=== PATIENT | female | born 1995 | race African-American/Black ===

== ENCOUNTER 2016-11-06 18:50 | Inpatient (IN) | payer MEDICAID, OTHER ==
[~2016-11-06] VITALS: Ht 30.5 cm; Wt 0.5 kg
[2016-11-06] MEDS ORDERED: LACT. RINGERS/OXYTOCIN 20UNITS 1,000 ML IV SCH (19:09)
[2016-11-06] MEDS ORDERED: METHYLERGONOVINE MALEATE 0.2 MG/ML AMP IM PRN (19:15)
[2016-11-06] MEDS ORDERED: WITCH HAZEL-GLYCERIN PAD TOP PRN (19:15)
[2016-11-06] MEDS ORDERED: NALBUPHINE HCL 10 MG/1ml INJECTION IV PRN (19:15)
[2016-11-06] MEDS ORDERED: DERMOPLAST 60ML BOTTLE TOP PRN (19:15)
[2016-11-06] MEDS ORDERED: LIDOCAINE 2%HCL (LOCAL ANESTH.) INJ 20ML MDV IJ ONE (19:15)
[2016-11-06] MEDS ORDERED: PHISODERM TOP SOLN 240ML BTL TOP PRN (19:15)
[2016-11-06 19:38] LABS: Basophils # (auto) 0 uL; Basophils % (auto) 0.3 % (0.0-2.0); CONDITION Y; Eosinophils # (auto) 0.1 uL; Eosinophils % (auto) 1.4 % (0.0-7.0); Hematocrit 37.1 % (36.0-46.0); Hemoglobin 12.4 g/dL (12.2-16.2); Lymphocytes # (auto) 1.8 uL; Lymphocytes % (auto) 22.4 % (10.0-50.0); Mean Corpuscular Hgb Conc. 33.3 g/dL (32.0-36.0); Mean Corpuscular Volume 86.9 fL (80.0-100.0); Mean Platelet Volume 11.1 fL (7.4-10.4); Monocytes # (auto) 0.5 uL; Monocytes % (auto) 5.7 % (0.0-12.0); Neutrophils # (auto) 5.6 uL; Neutrophils % (auto) 70.2 % (37.0-80.0); Platelet Count (auto) 217 10^3/uL (140-450); Red Cell Distribution Width 14.1 % (11.6-16.0); SUSPECT SEE PRINTOUT
[2016-11-06 19:43] LABS: Urine Bilirubin Negative (Negative); Urine Blood Negative /uL (Negative); Urine Color Yellow (Yellow); Urine Glucose Normal (Normal); Urine Ketone Negative (Negative); Urine Mucus FEW (None Seen); Urine Nitrite Negative (Negative); Urine RBC 4 /hpf (0 - 4); Urine Squamous Epithelial Cell MANY /hpf (<5); Urine Urobilinogen Normal (Negative)
[2016-11-06 19:55] LABS: INR 0.92 (0.9-1.15)
[2016-11-06 19:58] LABS: Albumin 2.7 g/dL (3.4-5.0); BUN/Creatinine Ratio 11.1; Bilirubin, Total 0.3 mg/dL (0.2-1.0); Potassium 3.6 mmol/L (3.5-5.1); Total Protein 7.2 g/dL (6.4-8.2)
[2016-11-07] VITALS (9 sets, daily range): BP systolic 120–142; BP diastolic 60–87
[2016-11-07] MEDS: LACTATED RINGER'S 1,000 ML IV SCH ×2 (00:17→03:19)
[2016-11-07] MEDS ORDERED: ePHEDrine SULFATE 50 MG/ML AMP ONE (07:44)
[2016-11-07] MEDS ORDERED: fentaNYL W ROPIVACAINE 150 ML EPI ONE (07:44)
[2016-11-07] MEDS ORDERED: LIDOCAINE HCL 2 %PF INJ 10ML AMP IJ ONE ×2 (07:44→08:00)
[2016-11-07] MEDS ORDERED: fentaNYL CITRATE 100 MCG/2 ML VL ONE ×2 (07:44→16:44)
[2016-11-07] MEDS ORDERED: fentaNYL CITRATE 100 MCG/2 ML VL IV ONE ×2 (08:00→08:45)
[2016-11-07] MEDS ORDERED: ePHEDrine SULFATE 50 MG/ML AMP IV ONE ×2 (08:00→08:45)
[2016-11-07] MEDS ORDERED: fentaNYL W ROPIVACAINE 150 ML EPI SCH ×2 (08:00→08:45)
[2016-11-07] MEDS ORDERED: SODIUM CHLORIDE 0.9% 500 ML IV PRN (08:41)
[2016-11-07] MEDS ORDERED: NALOXONE HCL 0.4 MG/ML VIAL IV ONE (08:45)
[2016-11-07] MEDS ORDERED: LACT. RINGERS/OXYTOCIN 20UNITS 1,000 ML IV SCH (09:15)
[2016-11-07] MEDS ORDERED: TERBUTALINE SULFATE 1 MG/ML 1ML VIAL SC ONE (09:15)
[2016-11-07] MEDS ORDERED: ceFAZolin 1GM/50ML D5W 50 ML IV ONE (12:58)
[2016-11-07] MEDS ORDERED: SUCCINYLCHOLINE CHLORIDE 20 MG/ML 10ML VIAL IV ONE (16:30)
[2016-11-07] MEDS ORDERED: PHENYLEPHRINE HCL 10 MG/ML VL IV ONE (16:32)
[2016-11-07] MEDS ORDERED: HYDROmorphone HCL 2 MG/ML VL ONE (16:43)
[2016-11-07] MEDS ORDERED: MIDAZOLAM HCL 1MG/1ML-2 ML VIAL ONE (16:44)
[2016-11-07] MEDS ORDERED: PROPOFOL 10 MG/ML 20 ML IV ONE (16:56)
[2016-11-07] MEDS ORDERED: ceFAZolin 1GM VL ONE (16:56)
[2016-11-07] MEDS ORDERED: OXYTOCIN 10 UNIT/ML 10ML VIAL ONE (16:56)
[2016-11-07] MEDS ORDERED: OXYTOCIN 10UNIT/ML 1ML VIAL ONE (17:17)
[2016-11-07] MEDS ORDERED: LACTATED RINGER'S 1,000 ML IV SCH (17:23)
[2016-11-07] MEDS ORDERED: KETOROLAC TROMETH 30 MG/ML 1ML VIAL IV ONE (17:30)
[2016-11-07] MEDS ORDERED: MIDAZOLAM HCL 1MG/1ML-2 ML VIAL IV PRN (17:30)
[2016-11-07] MEDS ORDERED: MORPHINE SULF INJ 2 MG/ML SYRINGE 1ML IV PRN (17:30)
[2016-11-07] MEDS ORDERED: ONDANSETRON HCL 4 MG/2 ML VIAL IV PRN (17:30)
[2016-11-07] MEDS ORDERED: LABETALOL HCL 5 MG/ML 4ML SYRINGE IV PRN (17:30)
[2016-11-07] MEDS ORDERED: ePHEDrine SULFATE 50 MG/ML AMP IV PRN (17:30)
[2016-11-07] MEDS ORDERED: ONDANSETRON HCL 4 MG/2 ML VIAL IV ONE (17:30)
[2016-11-07] MEDS: HYDROmorphone HCL 2 MG/ML VL IV PRN ×3 (17:55→23:09)
[2016-11-07] MEDS ORDERED: KETOROLAC TROMETH 30 MG/ML 1ML VIAL IV SCH (18:00)
[2016-11-07] MEDS: KETOROLAC TROMETH 30 MG/ML 1ML VIAL IV SCH (19:37)
[2016-11-07] MEDS: ceFAZolin 1GM/50ML D5W 50 ML IV SCH (22:01)
[2016-11-08] VITALS (12 sets, daily range): BP systolic 114–157; BP diastolic 65–80
[2016-11-08] MEDS: KETOROLAC TROMETH 30 MG/ML 1ML VIAL IV SCH ×3 (01:03→06:35)
[2016-11-08] MEDS: LACTATED RINGER'S 1,000 ML IV SCH ×2 (02:40→11:40)
[2016-11-08] MEDS: HYDROmorphone HCL 2 MG/ML VL IV PRN (04:57)
[2016-11-08] MEDS: ceFAZolin 1GM/50ML D5W 50 ML IV SCH ×3 (05:46→22:05)
[2016-11-08] MEDS ORDERED: BISACODYL 10 MG RECT SUPP PR PRN (07:45)
[2016-11-08] MEDS: HYDROcodone-ACET 5/325MG TAB PO PRN ×4 (08:27→22:06)
[2016-11-08 08:50] LABS: Basophils # (auto) 0 uL; Basophils % (auto) 0.2 % (0.0-2.0); CONDITION Y; Eosinophils # (auto) 0.1 uL; Eosinophils % (auto) 0.8 % (0.0-7.0); Hematocrit 31.9 % (36.0-46.0); Hemoglobin 10.9 g/dL (12.2-16.2); Lymphocytes # (auto) 1.2 uL; Lymphocytes % (auto) 9.9 % (10.0-50.0); Mean Corpuscular Hemoglobin 29.9 pg (28.0-32.0); Mean Corpuscular Hgb Conc. 34.3 g/dL (32.0-36.0); Mean Corpuscular Volume 87.1 fL (80.0-100.0); Mean Platelet Volume 10.6 fL (7.4-10.4); Monocytes # (auto) 0.6 uL; Monocytes % (auto) 5.3 % (0.0-12.0); Neutrophils % (auto) 83.8 % (37.0-80.0); Platelet Count (auto) 180 10^3/uL (140-450); Red Cell Distribution Width 14.4 % (11.6-16.0); White Blood Cell 11.9 10^3/uL (4.4-10.8)
[2016-11-08] MEDS: IBUPROFEN 800 MG TAB PO PRN ×2 (10:00→18:32)
[2016-11-08] MEDS: DOCUSATE CALCIUM 240 MG CAP PO SCH (10:00)
[2016-11-08] MEDS: DOCUSATE SOD 100 MG CAP PO SCH ×2 (10:00→22:06)
[2016-11-08] MEDS ORDERED: PRENCAP61 PO (17:01)
[2016-11-08] MEDS ORDERED: ACETAMINOPHEN 325 MG TAB PO PRN (22:00)
[2016-11-08] MEDS: metroNIDAZOLE 500 MG TAB PO SCH (22:05)
[2016-11-08 22:11] LABS: Basophils # (auto) 0 uL; CONDITION Y; Eosinophils # (auto) 0 uL; Eosinophils % (auto) 0.3 % (0.0-7.0); Hematocrit 31.9 % (36.0-46.0); Hemoglobin 10.9 g/dL (12.2-16.2); Lymphocytes # (auto) 0.5 uL; Lymphocytes % (auto) 5.4 % (10.0-50.0); Mean Corpuscular Hemoglobin 29.5 pg (28.0-32.0); Mean Corpuscular Hgb Conc. 34.1 g/dL (32.0-36.0); Mean Corpuscular Volume 86.4 fL (80.0-100.0); Mean Platelet Volume 10.3 fL (7.4-10.4); Monocytes # (auto) 0.4 uL; Monocytes % (auto) 4.5 % (0.0-12.0); Neutrophils # (auto) 8.2 uL; Neutrophils % (auto) 89.8 % (37.0-80.0); Platelet Count (auto) 211 10^3/uL (140-450); Red Cell Distribution Width 14.6 % (11.6-16.0); SUSPECT SEE PRINTOUT; White Blood Cell 9.2 10^3/uL (4.4-10.8)
[2016-11-08 22:41] LABS: Urine Bilirubin Negative (Negative); Urine Color Yellow (Yellow); Urine Ketone Negative (Negative); Urine Nitrite Negative (Negative); Urine RBC 519 /hpf (0 - 4); Urine Squamous Epithelial Cell FEW /hpf (<5)
[2016-11-08 22:45] LABS: Urine Blood 2+ /uL (Negative); Urine Glucose 1+ mg/dL (Normal)
[2016-11-09] MEDS: LACTATED RINGER'S 1,000 ML IV SCH ×3 (03:31→23:31)
[2016-11-09] MEDS: IBUPROFEN 800 MG TAB PO PRN ×2 (03:42→11:53)
[2016-11-09] MEDS: metroNIDAZOLE 500 MG TAB PO SCH ×3 (05:38→22:08)
[2016-11-09] MEDS: HYDROcodone-ACET 5/325MG TAB PO PRN ×4 (05:38→20:06)
[2016-11-09] MEDS: ceFAZolin 1GM/50ML D5W 50 ML IV SCH ×3 (05:38→21:55)
[2016-11-09 06:50] VITALS: BP 134/70
[2016-11-09] MEDS: DOCUSATE CALCIUM 240 MG CAP PO SCH (09:45)
[2016-11-09] MEDS: DOCUSATE SOD 100 MG CAP PO SCH ×2 (09:45→21:54)
[2016-11-09 12:30] VITALS: BP 130/63
[2016-11-09 16:30] VITALS: BP 126/73
[2016-11-09 19:52] VITALS: BP 138/79
[2016-11-09 23:10] VITALS: BP 125/76
[2016-11-10] MEDS: IBUPROFEN 800 MG TAB PO PRN (03:00)
[2016-11-10 03:39] VITALS: BP 142/90
[2016-11-10] MEDS: metroNIDAZOLE 500 MG TAB PO SCH (05:51)
[2016-11-10] MEDS: ceFAZolin 1GM/50ML D5W 50 ML IV SCH (05:51)
[2016-11-10] MEDS ORDERED: TETANUS-DIPTH-ACEL PERTUSSIS 0.5ML SYRG IM ONE (06:45)
[2016-11-10 07:32] VITALS: BP 136/75
== END 2016-11-10 07:40 | disposition home or self-care (01) | DRG 540 ==
LOC: LDRP 18:50
PROVIDERS: ADMIT Specialist; ATTEND Specialist
PROC: 10D00Z1 Extraction of Products of Conception, Low, Open Approach (ICD-10-PCS; principal; 2016-11-07 16:32)
DX: O48.0 Post-term pregnancy (principal); O41.03X0 Oligohydramnios, third trimester, not applicable or unspecified; O76 Abnormality in fetal heart rate and rhythm complicating labor and delivery; O69.81X0 Labor and delivery complicated by cord around neck, without compression, not applicable or unspecified; O62.2 Other uterine inertia; Z3A.40 40 weeks gestation of pregnancy; Z86.32 Personal history of gestational diabetes; Z37.0 Single live birth
CPT/HCPCS: 36415; 59025; 62282; 80053; 80307; 81001; 81002; 85025; 85610; 85730; 86850; 86900; 86901; 87040; 96361; 96365; 96366; 96374; 96375; J0330; J0690; J1885; J2250; J2590; J2704; J3010

== ENCOUNTER 2018-09-13 03:12 | Inpatient (IN) | payer MEDICAID ==
--- NOTE | 2018-08-28 19:00 | NUR ---
ASSESSMENT COMPLETED AND POC REVIEWED. ALL QUESTIONS ANSWERED. SEE FLOWSHEET FOR COMPLETE DATA. ABDOMINAL DRESSING MARKED WITH A KALISPEL , PENNED AROUND SHADOWED AREA. pATIENT DENIES PAIN.
[~2018-09-13] VITALS: Ht 167.6 cm; Wt 106.6 kg
[~2018-09-13 03:12] MED LIST: PRENCAP61 PO
[2018-09-13 04:30] LABS: Basophils # (auto) 0 uL; Basophils % (auto) 0.5 % (0.0-2.0); Eosinophils # (auto) 0.1 uL; Eosinophils % (auto) 1.2 % (0.0-7.0); Hematocrit 38.5 % (36.0-46.0); Hemoglobin 12.9 g/dL (12.2-16.2); Lymphocytes # (auto) 2.2 uL; Lymphocytes % (auto) 30.7 % (10.0-50.0); Mean Corpuscular Hemoglobin 29.7 pg (28.0-32.0); Mean Corpuscular Hgb Conc. 33.6 g/dL (32.0-36.0); Mean Corpuscular Volume 88.2 fL (80.0-100.0); Monocytes # (auto) 0.6 uL; Monocytes % (auto) 8.7 % (0.0-12.0); Neutrophils # (auto) 4.3 uL; Neutrophils % (auto) 58.9 % (37.0-80.0); Nucleated Red Blood Cells % 0.1 %; Platelet Count (auto) 168 10^3/uL (140-450); Red Blood Cells 4.37 10^6/uL (4.0-5.20); Red Cell Distribution Width 13.4 % (11.8-14.3); White Blood Cell 7.2 10^3/uL (4.4-10.8)
[2018-09-13 04:41] LABS: INR 0.88 (0.9-1.15); Partial Thromboplastin Time 28.5 sec (23.78-33.04); Prothrombin Time 9.5 sec (9.27-12.13)
[2018-09-13 04:55] LABS: Albumin 2.7 g/dL (3.4-5.0); BUN/Creatinine Ratio 8.3; Calcium 8.7 mg/dL (8.5-10.1); Potassium 3.8 mmol/L (3.5-5.1)
[2018-09-13 04:58] LABS: Bilirubin, Total 0.3 mg/dL (0.2-1.0); Total Protein 7.6 g/dL (6.4-8.2)
[2018-09-13 05:26] LABS: Urine Amorphous Crystal FEW /hpf (None Seen); Urine Bacteria MANY /hpf (None Seen); Urine Blood Negative /uL (Negative); Urine Specific Gravity 1.005 (1.001-1.035); Urine WBC 18 /hpf (0 - 5)
[2018-09-13 05:31] LABS: Alcohol, Urine < 3.0 mg/dL (0-5); Amphetamine Screen, Urine NEGATIVE (NEGATIVE); Barbiturate Scree,Urine NEGATIVE (NEGATIVE); Benzodiazephine Screen, Urine NEGATIVE (NEGATIVE); Cannabinoid Screen, Urine NEGATIVE (NEGATIVE); Cocaine Screen, Urine NEGATIVE (NEGATIVE); Opiate Scree,Urine NEGATIVE (NEGATIVE); Phencyclidine Screen, Urine NEGATIVE (NEGATIVE)
[2018-09-13] MEDS: LACTATED RINGER'S 1,000 ML IV SCH ×5 (06:27→21:13)
[2018-09-13] MEDS ORDERED: MORPHINE SULF(PF) 0.5MG/ML 10ML VIAL ONE (07:24)
[2018-09-13] MEDS ORDERED: fentaNYL CITRATE 100 MCG/2 ML VL ONE (07:25)
[2018-09-13] MEDS ORDERED: OXYTOCIN 10 UNIT/ML 10ML VIAL ONE (08:35)
[2018-09-13] MEDS ORDERED: ceFAZolin 1GM VL ONE (08:35)
[2018-09-13] MEDS ORDERED: ONDANSETRON HCL 4 MG/2 ML VIAL IV PRN ×2 (09:15)
[2018-09-13] MEDS ORDERED: ceFAZolin 1GM/50ML 50 ML IV SCH (09:15)
[2018-09-13] MEDS ORDERED: diphenhdrAMINE HCL 50 MG/1 ML VL IV PRN (09:15)
[2018-09-13] MEDS ORDERED: NALOXONE HCL 0.4 MG/ML VIAL IV PRN (09:15)
[2018-09-13] MEDS ORDERED: MORPHINE SULFATE 4 MG/ML SYR/VIAL IV PRN (09:15)
--- NOTE | 2018-09-13 09:50 | NUR ---
Post Op for LDRP: Received patient from PACU via bed to room 107A. Patient A/A/Ox4, abdominal binder and bilateral SCD's are in place, IV fluids placed on pump and infusing per order, incisional site dressing clean/dry/intact and Shah Catheter to gravity draining clear yellow urine. Incentive Spirometer at bedside and instruction on proper use with return demonstration done by patient.
[2018-09-13 10:19] VITALS: BP 127/66
[2018-09-13 11:16] VITALS: BP 138/65
[2018-09-13] MEDS: KETOROLAC TROMETH 30 MG/ML 1ML VIAL IV PRN ×2 (11:18→21:10)
[2018-09-13 12:56] VITALS: BP 130/74
[2018-09-13 15:05] VITALS: BP 125/68
[2018-09-13] MEDS: ceFAZolin 1GM/50ML 50 ML IV SCH ×2 (15:50→23:10)
[2018-09-13 19:00] VITALS: BP 121/65
--- NOTE | 2018-09-13 20:30 | NUR ---
OUT OF BED TO AMBULATE. PT AMBULATED 400 FEET, TOLERATED WELL.
[2018-09-13 23:00] VITALS: BP 119/63
[2018-09-14 03:00] VITALS: BP 135/74
[2018-09-14 04:06] LABS: RPR Non Reactive (Non Reactive)
[2018-09-14 06:03] LABS: Basophils # (auto) 0 uL; Basophils % (auto) 0.3 % (0.0-2.0); Eosinophils # (auto) 0.1 uL; Eosinophils % (auto) 0.9 % (0.0-7.0); Hemoglobin 11.5 g/dL (12.2-16.2); Lymphocytes # (auto) 1.2 uL; Lymphocytes % (auto) 14.4 % (10.0-50.0); Mean Corpuscular Hemoglobin 29.5 pg (28.0-32.0); Mean Corpuscular Hgb Conc. 33.8 g/dL (32.0-36.0); Mean Corpuscular Volume 87.5 fL (80.0-100.0); Monocytes # (auto) 0.5 uL; Monocytes % (auto) 6.4 % (0.0-12.0); Neutrophils # (auto) 6.3 uL; Nucleated Red Blood Cells % 0.1 %; Platelet Count (auto) 149 10^3/uL (140-450); Red Blood Cells 3.89 10^6/uL (4.0-5.20); Red Cell Distribution Width 13.7 % (11.8-14.3); White Blood Cell 8.1 10^3/uL (4.4-10.8)
[2018-09-14 06:40] VITALS: BP 133/70
--- NOTE | 2018-09-14 06:50 | NUR ---
[address] TEJADA SEEN PATIENT AT BEDSIDE. TALKED TO DR. TEJADA IN NURSING STATION AND SHE STATES OKAY TO DISCHARGE PATIENT IF CAT CRAIG SENDS INFANT HOME.
[2018-09-14] MEDS: KETOROLAC TROMETH 30 MG/ML 1ML VIAL IV PRN (07:01)
--- NOTE | 2018-09-14 07:30 | NUR ---
Nuñez catheter dc'd Order to discontinue nuñez catheter. Nuñez dc'd with clean technique following deflation of balloon. Patient tolerated well with no complaints of pain. Continue care.
[2018-09-14] MEDS: ceFAZolin 1GM/50ML 50 ML IV SCH (08:17)
[2018-09-14] MEDS ORDERED: HYDROcodone-ACET 5/325MG TAB PO PRN (10:00)
[2018-09-14] MEDS ORDERED: BISACODYL 10 MG RECT SUPP PR PRN (10:00)
[2018-09-14] MEDS: DOCUSATE CALCIUM 240 MG CAP PO SCH (10:17)
[2018-09-14] MEDS: DOCUSATE SOD 100 MG CAP PO SCH ×2 (10:17→22:10)
[2018-09-14 10:38] VITALS: BP 132/88
[2018-09-14] MEDS: HYDROcodone-ACET 5/325MG TAB PO PRN ×3 (11:00→22:11)
[2018-09-14] MEDS: SIMETHICONE 80 MG CHEWABLE TABLET PO SCH ×3 (15:10→22:11)
[2018-09-14] MEDS: IBUPROFEN 800 MG TAB PO PRN (15:10)
[2018-09-14 15:30] VITALS: BP 125/68
[2018-09-14 19:00] VITALS: BP 114/62
[2018-09-14 23:00] VITALS: BP 121/83
[2018-09-15] MEDS: IBUPROFEN 800 MG TAB PO PRN ×2 (01:35→09:40)
[2018-09-15] MEDS: HYDROcodone-ACET 5/325MG TAB PO PRN ×5 (01:59→22:18)
[2018-09-15 03:00] VITALS: BP 113/65
[2018-09-15] MEDS: SIMETHICONE 80 MG CHEWABLE TABLET PO SCH ×4 (06:03→22:13)
[2018-09-15 07:15] VITALS: BP 127/66
[2018-09-15] MEDS: DOCUSATE CALCIUM 240 MG CAP PO SCH (09:40)
[2018-09-15] MEDS: DOCUSATE SOD 100 MG CAP PO SCH ×2 (09:40→22:13)
[2018-09-15 11:25] VITALS: BP 119/89
[2018-09-15 15:10] VITALS: BP 123/69
[2018-09-15 19:20] VITALS: BP 120/80
[2018-09-15 23:00] VITALS: BP 137/84
[2018-09-16] MEDS: HYDROcodone-ACET 5/325MG TAB PO PRN (02:06)
[2018-09-16 02:44] VITALS: BP 133/83
[2018-09-16] MEDS: IBUPROFEN 800 MG TAB PO PRN (05:36)
[2018-09-16] MEDS: SIMETHICONE 80 MG CHEWABLE TABLET PO SCH (05:36)
--- NOTE | 2018-09-16 07:22 | NUR ---
Discharge: Discharge instructions given as ordered. 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 All questions and concerns addressed. Patient verbalized understanding. Medication reconciliation completed and copy given to patient. Patient refused t-dap vaccine. Patient encouraged to prepare to depart unit.
[2018-09-16 07:30] VITALS: BP 138/91
[2018-09-16 07:45] VITALS: BP 132/84
--- NOTE | 2018-09-16 08:25 | NUR ---
Discharge: Patient taken to vehicle ambulatory with steady gait, pt refused wheelchair with all personal belongings, accompanied by staff and family member. No distress noted at time of departure, no adverse changes in status since initial assessment.
== END 2018-09-16 08:25 | disposition home or self-care (01) | DRG 540 ==
LOC: OBSVTOIN 03:40 → LDRP 03:40
PROVIDERS: ADMIT Specialist; ATTEND Specialist
PROC: 10D00Z1 Extraction of Products of Conception, Low, Open Approach (ICD-10-PCS; principal; 2018-09-13 07:51)
DX: O34.211 Maternal care for low transverse scar from previous cesarean delivery (principal); O99.324 Drug use complicating childbirth; Z37.0 Single live birth; Z3A.39 39 weeks gestation of pregnancy
CPT/HCPCS: 36415; 51702; 59025; 80053; 80307; 81001; 85025; 85610; 85730; 86592; 86850; 86900; 86901; 96365; 96366; 96374; 96375; G0378; J0690; J1885; J2590